=== PATIENT | male | born 1980 | race Two or more races ===

== ENCOUNTER 2024-11-18 17:34 | Emergency (ER) | payer MEDICAID, SELFPAY ==
[2024-11-18 17:35] VITALS: PULSE 104; RESP 20; O2SAT 99
== END 2024-11-18 19:00 | disposition left against medical advice (07) ==
LOC: SERX 18:31
PROVIDERS: Emergency Provider Emergency Medicine
DX: Z53.21 Procedure and treatment not carried out due to patient leaving prior to being seen by health care provider (principal)